=== PATIENT | female | born 1995 | race Caucasian/White ===

== ENCOUNTER 2016-09-12 14:01 | Emergency (ER) | payer MEDICAID ==
--- NOTE | 2016-09-13 10:38 | NUR ---
Received SAD person referral. Called and spoke with Pt. Pt states she is and applied for Medicaid about 6 weeks ago. Pt will bring in a copy of her Medicaid card once approved. Pt sees Dr. Powell for her OB care. Pt states she was able to get her dc medications from ER pick-up yesturday and could afford them. Pt states she has transportation. Pt admits to attempting self-harm 3 years ago. Pt denies current thoughts of self harm and denies a plan. Pt denies any needs or concerns at this time.
--- NOTE | 2016-09-27 08:13 | ER ---
ADMIT: 09/12/2016 RM/LOC: ER [facility] MR#: [id number] [address] ANTONIO REVELES [address] [place] [address] Emergency Room Report SEX: F AGE: 21 : 1995 DATE: 09/12/2016 ADDENDUM: This patient comes into the ER because she has a lump behind her right ear. She states it is very tender to palpation. Denies any pain in her ear and no difficulty hearing. On physical exam, she does have a right post auricle lymph node that is tender to palpation. Her posterior pharynx is benign. I palpate no lesions in her scalp, and her TM is normal. DIAGNOSIS: Postauricular lymphadenopathy. I wrote a prescription for amoxicillin. She needs to follow up with her primary in a week if not better. Please see my T-sheet. JACKIE Guido / Bahman Barber MD / sharon JOB #: [id number] CC: Bahman Barber MD, Attending Physician Dunia Hicks MD, Family Physician
== END 2016-09-12 14:32 | disposition home or self-care (01) ==
LOC: ER 14:01
DX: R59.0 Localized enlarged lymph nodes (principal); F17.210 Nicotine dependence, cigarettes, uncomplicated

== ENCOUNTER 2016-12-03 00:46 | Emergency (ER) | payer MEDICAID ==
--- NOTE | 2016-12-03 07:20 | ER ---
ADMIT: 12/03/2016 RM/LOC: ER [facility] MR#: [id number] [address] [address] ANTONIO REVELES [address] [place] [address] Emergency Room Report SEX: F AGE: 21 : 1995 DATE: 12/03/2016 The patient is a 21-year-old female, complaining of diffuse epigastric pain, typical migraine, concerned she may be . Denies any dysuria, but does have history of frequent UTIs, asymptomatic as adult. Exam remarkable for nontoxic, afebrile female, moderate distress with migraine. Received IV fluids, Zofran, Toradol, magnesium, DHE with near complete relief of migraine. Urine shows 2+ leukocyte esterase, 28 rbc's, 11 wbc's. Negative . Normal CBC, CMP, lipase, and CRP. Discharged with Macrobid 100 mg b.i.d. x7 days, 1st dose in department. Follow up with Dr. Tovar in 2 weeks for repeat UA. Jalen Nicholson MD/ sharon JOB #: [id number] CC: Jalen Nicholson MD, Attending Physician
== END 2016-12-03 02:36 | disposition home or self-care (01) ==
LOC: ER 00:46
DX: G43.909 Migraine, unspecified, not intractable, without status migrainosus (principal); N30.90 Cystitis, unspecified without hematuria; F17.210 Nicotine dependence, cigarettes, uncomplicated; F32.9 Major depressive disorder, single episode, unspecified; Z79.899 Other long term (current) drug therapy